=== PATIENT | female | born 1950 | race Caucasian/White ===

== ENCOUNTER → 2022-08-13 | Outpatient (CLI) | payer MEDICARE | END | disposition home or self-care (01) | LOC: PLD 10:01 → LAB SHORT 10:01 | DX: C44.319 Basal cell carcinoma of skin of other parts of face (principal); C79.51 Secondary malignant neoplasm of bone | CPT/HCPCS: 88305 ==

== ENCOUNTER → 2022-10-16 | Outpatient (CLI) | payer MEDICARE | END | disposition home or self-care (01) | LOC: PLD 14:42 → LAB SHORT 14:42 | DX: L82.1 Other seborrheic keratosis (principal); L57.8 Other skin changes due to chronic exposure to nonionizing radiation | CPT/HCPCS: 88305 ==

== ENCOUNTER → 2022-10-22 | Outpatient (CLI) | payer MEDICARE | END | disposition home or self-care (01) | LOC: PLD 08:29 → LAB 08:29 → LAB SHORT 08:29 | DX: C44.319 Basal cell carcinoma of skin of other parts of face (principal) | CPT/HCPCS: 88305 ==

== ENCOUNTER → 2023-02-12 | Outpatient (CLI) | payer MEDICARE | LOC: PLD 12:41 → LAB SHORT 12:41 → LAB 12:41 | DX: C44.319 Basal cell carcinoma of skin of other parts of face (principal); C44.629 Squamous cell carcinoma of skin of left upper limb, including shoulder | CPT/HCPCS: 88305 ==

== ENCOUNTER → 2023-03-05 | Outpatient (CLI) | payer MEDICARE | END | disposition home or self-care (01) | LOC: LAB 14:43 → LAB SHORT 14:43 → PLD 14:43 | DX: L57.0 Actinic keratosis (principal); L82.1 Other seborrheic keratosis | CPT/HCPCS: 88305 ==

== ENCOUNTER → 2024-12-07 | Outpatient (CLI) | payer MEDICARE ==
[2024-12-13 19:23] LABS: OVA AND PARASITE,FECAL INTERP Negative (Negative)
== END ==
LOC: LAB SHORT 16:00 → LAB 16:00
DX: R14.3 Flatulence (principal); R14.1 Gas pain; R14.2 Eructation; R19.7 Diarrhea, unspecified
CPT/HCPCS: 87177; 87209